=== PATIENT | male | born 1975 ===

== ENCOUNTER 2017-06-26 20:24 | Emergency (ER) | payer BC ==
[2017-06-26 20:33] VITALS: BP 144/94
--- NOTE | 2017-06-26 20:58 | UC ---
Ear Complaint HPI - HPI Summary HPI Summary: Pt c/o left ear fullness, ringing in left ear, occasional dizziness X 2 weeks. Pt reports that he had an episode of veritgo like dizziness tonight. Denies injury, trauma fever chills or URI like symptoms - History of Current Complaint Chief Complaint: UCEar Stated Complaint: LEFT EAR PAIN Time Seen by Provider: 06/26/17 20:27 Hx Obtained From: Patient Onset/Duration: Gradual Onset, Lasting Weeks - 2, Still Present, Worse Since - onset Severity Initially: Mild Severity Currently: Mild Associated Signs/Symptoms: Positive: Foreign Body Sensation - Allergies/Home Medications Allergies/Adverse Reactions: Allergies Allergy/AdvReac Type Severity Reaction Status Date / Time No Known Allergies Allergy Verified 06/26/17 20:33 Home Medications: Home Medications NK [No Home Medications Reported] 06/26/17 [History Confirmed 06/26/17] PMH/Surg Hx/FS Hx/Imm Hx Previously Healthy: Yes - Surgical History Surgical History: None - Family History Known Family History: Positive: Cardiac Disease - Social History Occupation: Employed Full-time Lives: With Family Alcohol Use: Occasionally Substance Use Type: None Smoking Status (MU): Never Smoked Tobacco Have You Smoked in the Last Year: No Review of Systems Constitutional: Negative Skin: Negative Eyes: Negative ENT: Ear Ache, Other - left ear fullness, tinnitus, Respiratory: Negative Cardiovascular: Negative Gastrointestinal: Negative Genitourinary: Negative Motor: Negative Neurovascular: Negative Musculoskeletal: Negative Neurological: Negative Psychological: Negative Is Patient Immunocompromised?: No All Other Systems Reviewed And Are Negative: Yes Physical Exam Triage Information Reviewed: Yes Appearance: Well-Appearing Vital Signs: Initial Vital Signs Temp 97.8 F 06/26/17 20:28 Pulse 81 06/26/17 20:28 Resp 16 06/26/17 20:28 BP 144/94 06/26/17 20:28 Pulse Ox 99 06/26/17 20:28 Vital Signs Reviewed: Yes Eye Exam: Normal ENT Exam: Other ENT: Positive: TM bulging - left Dental Exam: Normal Neck exam: Normal Respiratory: Positive: No respiratory distress Musculoskeletal Exam: Normal Neurological Exam: Normal Psychological Exam: Normal Skin Exam: Normal Ear Complaint Course/Dx - Differential Dx/Diagnosis Differential Diagnosis/HQI/PQRI: URI, Other - seasonal allergies, Provider Diagnoses: serous otitis. tinnitus. dizziness Discharge - Discharge Plan Condition: Stable Disposition: HOME Patient Education Materials: Tinnitus (ED), Serous Otitis Media (ED) Referrals: [facility] [Provider Group] [facility] [Outside] No Primary Care Phys,NOPCP [Primary Care Provider] - If Needed Additional Instructions: Please follow up with your PCP or return to clinic as needed. We have provided a referral to the [facility], N[facility] Throat specialists for you to folow up with as needed.
== END 2017-06-26 21:05 | disposition home or self-care (01) ==
LOC: UCCORT 20:24
DX: H65.92 Unspecified nonsuppurative otitis media, left ear (principal); H93.12 Tinnitus, left ear; R42 Dizziness and giddiness
CPT/HCPCS: 99201; G0463